=== PATIENT | male | born 1980 | race Caucasian/White ===

== ENCOUNTER 2023-03-30 18:34 | Emergency (ER) | payer BC ==
[~2023-03-30] VITALS: Ht 175.3 cm; Wt 78.4 kg
[2023-03-30 18:40] VITALS: BP 152/98
[2023-03-30] MEDS: proparacaine 0.5% ophthalmic drops 15ml LEFTEYE ONE (22:16)
[2023-03-30] MEDS: fluorescein sod 1mg ophthalmic strip LEFTEYE ONE (22:16)
[2023-03-30] MEDS: ciprofloxacin 0.3% 2.5ml ophthalmic solution LEFTEYE ONE (22:56)
== END 2023-03-30 23:32 | disposition home or self-care (01) ==
LOC: ER 18:35
DX: H57.12 Ocular pain, left eye (principal)
CPT/HCPCS: 99283